=== PATIENT | female | born 1990 | race Caucasian/White ===

== ENCOUNTER → 2017-09-13 | Emergency (ER) | payer OTHER ==
[~2017-09-13] VITALS: Ht 154.9 cm; Wt 93.9 kg
[~2017-09-13] MED LIST: FOLIC ACID0.8 M1 PO; KEFLEX500 MG PO; PRENATA CHEWAB1 EACH PO
== END | disposition home or self-care (01) ==
LOC: ER 17:13
DX: O26.891 Other specified pregnancy related conditions, first trimester (principal); R10.2 Pelvic and perineal pain; Z34.01 Encounter for supervision of normal first pregnancy, first trimester

== ENCOUNTER 2018-02-01 11:33 | Inpatient (IN) | payer OTHER ==
[~2018-02-01] VITALS: Ht 154.9 cm; Wt 110.7 kg
[~2018-02-01 11:33] MED LIST changes: +ALDOMET250 MG PO
== END 2018-02-06 13:01 | DRG 780 ==
LOC: OB/GYN 11:33 → LDR 11:33 → OB/GYN 02-02 13:14
PROC: BY4FZZZ Ultrasonography of Third Trimester, Single Fetus (ICD-10-PCS; principal; 2018-02-01)
PROC: 4A1HXCZ Monitoring of Products of Conception, Cardiac Rate, External Approach (ICD-10-PCS; 2018-02-01)
DX: O47.03 False labor before 37 completed weeks of gestation, third trimester (principal); O24.410 Gestational diabetes mellitus in pregnancy, diet controlled; O13.3 Gestational [pregnancy-induced] hypertension without significant proteinuria, third trimester

== ENCOUNTER 2018-03-06 12:30 | Inpatient (IN) | payer OTHER ==
[~2018-03-06] VITALS: Ht 180.3 cm; Wt 2.7 kg
[2018-03-06] MEDS ORDERED: ALDOMET500 MG PO (14:00)
[2018-03-06] MEDS ORDERED: HUMULIN R500 UNIT/2 (14:00)
[2018-03-06] MEDS ORDERED: HUMULIN N100 UNIT/2 (14:01)
== END 2018-03-09 11:34 | DRG 766 ==
LOC: OB/GYN 12:30 → LDR 12:30 → OB/GYN 18:06 → O/R 19:23 → OB/GYN 22:57
PROVIDERS: Obstetrics & Gynecology
PROC: 4A033R1 Measurement of Arterial Saturation, Peripheral, Percutaneous Approach (ICD-10-PCS; 2018-03-06)
PROC: 4A1HXCZ Monitoring of Products of Conception, Cardiac Rate, External Approach (ICD-10-PCS; 2018-03-06)
PROC: 10D00Z1 Extraction of Products of Conception, Low, Open Approach (ICD-10-PCS; principal; 2018-03-06 18:00)
DX: O13.4 Gestational [pregnancy-induced] hypertension without significant proteinuria, complicating childbirth (principal); O62.1 Secondary uterine inertia; O24.420 Gestational diabetes mellitus in childbirth, diet controlled; Z3A.39 39 weeks gestation of pregnancy; Z37.0 Single live birth